=== PATIENT | female | born 1955 | race Caucasian/White ===

== ENCOUNTER → 2018-04-04 | Outpatient (CLI) | payer MEDICAID ==
--- NOTE | 2018-04-04 13:12 | PCVCIMAG ---
APPROVED REPORT Study performed: 04/04/2018 11:10:21 EXAM: Comprehensive 2D, Doppler, and color-flow Echocardiogram Patient Location: Echo lab Status: routine BSA: 2.25 HR: 82 bpmBP: 140/80 mmHg Rhythm: NSR Other Information Study Quality: AdequateFair Risk Factors: Cardiac Risk Factors: HTN, Hyperlipidemia, DM, Smoking Indications Diabetes Dyspnea CAD Hypertension/HDD Stent 2D Dimensions LVEF(%): 27.44 (>50%) IVSd: 9.50 (7-11mm)LVOT Diam: 18.37 (18-24mm) LVDd: 45.88 mm PWd: 8.00 (7-11mm)Ascending Ao: 31.01 (22-36mm) LVDs: 40.05 (25-40mm) Left Atrium: 36.77 (27-40mm) Aortic Root: 26.14 mm LV Single Plane 4CH: 66.24 % LV Single Plane 2CH: 54.13 %Larkin's LVEF: 60.19 % Biplane EF: 60.2 % Volumes Left Atrial Volume (Systole) Single Plane 4CH: 52.76 mLSingle Plane 2CH: 41.10 mL LA ESV Index: 22.00 mL/m2 Aortic Valve AoV Peak Jerson.: 1.80 m/s AO Peak Gr.: 13.01 mmHgLVOT Max P.26 mmHg LVOT Max V: 1.15 m/s KAYLA Vmax: 1.68 cm2 Mitral Valve E/A Ratio: 117.0 MV E Max Jerson.: 1.17 m/s MV A Jerson.: 0.01 m/s TDI E/Lateral E': 13.00E/Medial E': 14.63 Medial E' Ejrson.: 0.08 m/s Lateral E' Jerson.: 0.09 m/s Pulmonary Vein P Vein S: 0.56 m/sP Vein A: 0.38 m/s P Vein D: 0.49 m/sP Vein A Dur.: 86.5 msec P Vein S/D Ratio: 1.14 Left Ventricle The left ventricle is normal size. There is normal left ventricular wall thickness. Left ventricular systolic function is normal. Hypokinesis involving base of inferior wall. LVEF is 55%. The left ventricular diastolic function is normal. Right Ventricle The right ventricle is normal size. The right ventricular systolic function is normal. Atria The left atrium size is normal. The right atrium size is normal. Aortic Valve The aortic valve is normal in structure. No aortic regurgitation is present. There is no aortic valvular stenosis. Mitral Valve The mitral valve is normal in structure. There is no mitral valve regurgitation noted. No evidence of mitral valve stenosis. Tricuspid Valve The tricuspid valve is normal in structure. There is no tricuspid valve regurgitation noted. Pulmonic Valve The pulmonary valve is normal in structure. There is no pulmonic valvular regurgitation. Great Vessels The aortic root is normal in size. IVC is normal in size and collapses with >50% inspiration Pericardium There is no pericardial effusion. <Conclusion> Left ventricular systolic function is normal. Hypokinesis involving base of inferior wall. LVEF is 55%. The aortic valve is normal in structure. No aortic regurgitation or stenosis The mitral valve is normal in structure. No mitral valve regurgitation Pulmonary artery could not be reliably ascertained There is no pericardial effusion.
== END | disposition home or self-care (01) ==
LOC: PCVCIMAG 12:40
PROVIDERS: ATTEND Internal Medicine
DX: I25.10 Atherosclerotic heart disease of native coronary artery without angina pectoris (principal); I10 Essential (primary) hypertension; E78.5 Hyperlipidemia, unspecified; E11.9 Type 2 diabetes mellitus without complications; R06.09 Other forms of dyspnea; F17.200 Nicotine dependence, unspecified, uncomplicated; I25.2 Old myocardial infarction
CPT/HCPCS: 93306

== ENCOUNTER → 2018-12-11 | Outpatient (CLI) | payer MEDICAID | END | disposition home or self-care (01) | LOC: PCVCCLINIC 11:27 | PROVIDERS: ATTEND Internal Medicine | DX: I25.10 Atherosclerotic heart disease of native coronary artery without angina pectoris (principal); I10 Essential (primary) hypertension; E78.5 Hyperlipidemia, unspecified; E11.9 Type 2 diabetes mellitus without complications; F41.9 Anxiety disorder, unspecified; M10.9 Gout, unspecified; F17.200 Nicotine dependence, unspecified, uncomplicated; Z91.19 Patient's noncompliance with other medical treatment and regimen; Z88.4 Allergy status to anesthetic agent | CPT/HCPCS: 36415; 80061; 93005; G0463 ==